=== PATIENT | female | born 1965 | race African-American/Black ===

== ENCOUNTER 2016-03-21 10:59 | Emergency (ER) | payer OTHER ==
[~2016-03-21] VITALS: Ht 152.4 cm; Wt 71.5 kg
[~2016-03-21 10:59] MED LIST: AMLO5TAB22 PO; SPIR50TA21 PO
[2016-03-21 11:01] VITALS: BP 147/88; PULSE 115; RESP 14; TEMP 98.3; O2SAT 98
--- NOTE | 2016-03-21 11:44 | PD ---
HPI Chief Complaint: Cold / Flu Symptoms Time Seen by Provider: 11:25 Travel History International Travel<30 days: No Contact w/Intl Traveler<30days: No Traveled to known affect area: No History of Present Illness HPI Patient is a 50-year-old female with chief been no sore throat. She states she is atraumatic and nasal congestion, sneezing, postnasal drip and sore throat. Heart she swallows. She is able to eat and drink. She denies difficulty breathing, stridor, drooling, cough. She has had some ear pain as well. Mild frontal headache. She denies myalgias. She denies neck pain or stiffness. She denies fevers. She's been around able have had "the flu ". She did not receive influenza vaccine. [facility] Past Medical History Cardiovascular Problems: Yes Diminished Hearing: No Hypertension: Yes : 1 Para: 1 Miscarriage: 0 : 0 Past Surgical History Section: Yes (X1) Social History Alcohol Use: No Tobacco Use: No Substance Use: No Allergies-Medications (Allergen,Severity, Reaction): Coded Allergies: No Known Allergies (Verified , 03/21/16) Reported Meds & Prescriptions Reported Meds & Active Scripts Active Magic Mouthwash Pediatric/Adult Liq (Lidocaine/Diphenhydr/Alum/Mg/Simeth) 60 Ml Susp 5-10 Ml SWISH-SPIT ACHS PRN Please makes 40 mL each: 2% viscous lidocaine, liquid diphenhydramine and Maalox liquid Reported Spironolactone 50 Mg Tab 50 Mg PO DAILY Amlodipine5 5 Mg Tab 1 Tab PO DAILY Review of Systems Except as stated in HPI: all other systems reviewed are Neg Physical Exam Narrative GENERAL: Well-developed and well-nourished adult female in no acute distress. SKIN: Warm and dry. Good turgor without tenting. HEAD: Normocephalic and atraumatic. EYES: PERRL bilaterally, 5mm. EOMI bilaterally. No injection or icterus present. No proptosis. Lids without edema or erythema. ENT: Bilateral ear canals are non-edematous/non-erythematous without otorrhea. Bilateral TMs have intact landmarks and without distortion, perforation, air- fluid level or erythema. Nasal mucosa erythematous and edematous with scant yellow discharge, septum intact and midline. Buccal mucosa pink and moist. Oropharynx reveals bilateral 2+ tonsillar hypertrophy with erythema and exudate. No masses, edema or asymmetry. Uvula midline and airway patent. No palatal petechiae. NECK: Supple, no meningeal signs. Trachea midline, no JVD. No cervical or facial lymphadenopathy. No masses are indurated palpated. CARDIOVASCULAR: Regular rate and rhythm without murmurs, rubs, clicks or gallops. Radial pulses 2+ bilaterally. RESPIRATORY: Clear to auscultation bilaterally with symmetrical rise and fall, no distress or use of accessory muscles. Speaks in full sentences. No stridor , tripoding or drooling. GASTROINTESTINAL: Non-tender, non-distended. Normal bowel sounds all 4 quadrants. No masses or organomegaly present. MUSCULOSKELETAL: No gait disturbances. Patient freely moving all four extremities spontaneously. Extremities without clubbing, cyanosis, or edema. No obvious deformities. NEUROLOGIC: CN II-XII grossly intact. Awake and alert. Motor grossly within normal limits. Normal speech. PSYCHIATRIC: Appropriate mood and affect; insight and judgment normal. Data Data Last Documented VS Vital Signs Date Time Temp Pulse Resp B/P Pulse Ox O2 Delivery O2 Flow Rate FiO2 03/21/16 11:01 98.3 115 14 147/88 98 Room Air Orders Group A Rapid Strep Screen (03/21/16 11:19) Influenzae A/B Antigen (03/21/16 11:19) Strep Culture (Group A) (03/21/16 12:10) MDM Medical Decision Making Medical Screen Exam Complete: Yes Emergency Medical Condition: Yes Interpretation(s) Date/Time Procedure Status Source Growth 03/21/16 12:10 Group A Streptococcus Screen ([facility]ERRI) - Final Complete Throat 03/21/16 12:10 Influenza Types A,B Antigen ([facility]ERRI) - Final Complete Nasal Washing NEGATIVE FOR FLU A AND B ANTIGEN.... 03/21/16 12:10 Group A Streptococcus Screen Received Throat Pending Differential Diagnosis Pharyngitis versus strep pharyngitis versus viral pharyngitis versus viral syndrome versus inflamed Narrative Course Patient is a 50-year-old female who is afebrile and nontoxic-appearing with ENT symptoms for 2 days. She has an exudative pharyngitis. No meningeal signs or cervical lymphadenopathy. No signs of peritonsillar abscess. Lungs clear to auscultation and or respiratory complaints. Sent rapid flu and strep testing which were negative. Patient is a viral pharyngitis. Counseled her on rest and avoiding overexertion and not doing anything that would cause trauma to the chest or abdominal wall. She was given Magic mouthwash. Of note her heart rate was slightly elevated in triage showed her on my exam it is 92 and regular. She does not have evidence of sepsis or dehydration on exam. No further workup is indicated at this time emergently.See discharge paperwork for further instructions. The plan was discussed with the patient who acknowledged their understanding and agreement. Reinforced the follow-up with primary care is critically important. Patient instructed on emergent conditions that should prompt return to ED. Diagnosis Primary Impression: Viral pharyngitis Patient Instructions: General Instructions, Pharyngitis (ED), Viral Syndrome ( ED) Departure Forms: Tests/Procedures, Work Release Enter return to work date: Mar 25, 2016 Additional Instructions: Take medication as prescribed OTC Tylenol or Ibuprofen for fever and discomfort Drink lots of fluid to help clear mucous/drainage and stay hydrated Follow up with PCP in 2 days Return to the ED for any acute worsening of symptoms Med/Other Pt SpecificInfo: Prescription(s) given Scripts Rnbjdgoznttaiis-Eukkrbsku-Peh-Alum-Simeth Liq (Magic Mouthwash Pediatric/Adult Liq)60 Ml Susp5-10 Ml SWISH-SPIT ACHS PRN (SORE THROAT) #120 ML Please makes 40 mL each: 2% viscous lidocaine, liquid diphenhydramine and Maalox liquid Prov:Sana Lee MD 03/21/16 Disposition: 01 DISCHARGE HOME Condition: Stable Lauri Dean III Mar 21, 2016 11:44
[2016-03-21] MEDS ORDERED: MAGICPED SWISH-SPIT (13:09)
== END 2016-03-21 14:15 | disposition home or self-care (01) ==
LOC: NEPB 10:59
DX: J02.9 Acute pharyngitis, unspecified (principal)
CPT/HCPCS: 87081; 87804; 87880; 99283

== ENCOUNTER 2016-03-23 14:27 | Emergency (ER) | payer OTHER ==
[~2016-03-23] VITALS: Ht 162.6 cm; Wt 68.0 kg
[~2016-03-23 14:27] MED LIST changes: +MAGICPED SWISH-SPIT
[2016-03-23 14:29] VITALS: BP 134/76; PULSE 106; RESP 18; TEMP 98.6; O2SAT 100
[2016-03-23] MEDS ORDERED: AMOX500C PO (14:58)
--- NOTE | 2016-03-23 14:58 | PD ---
HPI Chief Complaint: ENT Complaint Time Seen by Provider: 14:56 Travel History International Travel<30 days: No Contact w/Intl Traveler<30days: No Traveled to known affect area: No History of Present Illness HPI 50-year-old female presents to the emergency Department with complaint of continued sore throat. She states that she was seen here on Friday for the same complaint and was given a mouthwash that is not working. Her throat pain has worsened. She reports painful swallowing /. Reports gagging with swallowing secondary to the pain. Reports vomiting after eating soup last night , secondary to the pain. Denies lump in throat, unusual drooling, difficulty breathing, stridor, wheezing. Reports voice is hoarse. Reports feeling feverish but has not taken her temperature and cannot report a MAXIMUM TEMPERATURE. Took Tylenol this morning with some relief of pain. Has not taken any other medications or tried any other treatments to alleviate her symptoms. No known allergies. History of hypertension. No other modifying factors or associated signs and symptoms. PFSH Past Medical History Cardiovascular Problems: Yes Diminished Hearing: No Hypertension: Yes ?: Not : 1 Para: 1 Miscarriage: 0 : 0 Past Surgical History Section: Yes (X1) Social History Alcohol Use: No Tobacco Use: No Substance Use: No Allergies-Medications (Allergen,Severity, Reaction): Coded Allergies: No Known Allergies (Verified , 03/21/16) Reported Meds & Prescriptions Reported Meds & Active Scripts Active Amoxicillin 500 Mg Cap 500 Mg PO BID 10 Days Magic Mouthwash Pediatric/Adult Liq (Lidocaine/Diphenhydr/Alum/Mg/Simeth) 60 Ml Susp 5-10 Ml SWISH-SPIT ACHS PRN Please makes 40 mL each: 2% viscous lidocaine, liquid diphenhydramine and Maalox liquid Reported Spironolactone 50 Mg Tab 50 Mg PO DAILY Amlodipine5 5 Mg Tab 1 Tab PO DAILY Review of Systems Except as stated in HPI: all other systems reviewed are Neg Physical Exam Narrative GENERAL: Well-nourished, well-developed female patient, in no acute distress; afebrile, nontoxic-appearing SKIN: Warm and dry. No rash. HEAD: Atraumatic. Normocephalic. EYES: Pupils equal and round at 3 mm with brisk reaction. No scleral icterus. No injection or drainage. PERRLA. ENT: Mucosa pink and dry. Oropharynx with 2+ tonsils; with erythema, exudate, and edema. No Uvular edema. No uvular, palatal, or tonsillar deviation. Airway patent. Voice is hoarse. EARS: Bilateral pinnae and external canals appear within normal limits. Bilateral tympanic membranes without erythema, dullness or perforation.. NECK: Trachea midline. Anterior cervical lymphadenopathy and tenderness. CARDIOVASCULAR: Regular rate and rhythm. No murmur appreciated. RESPIRATORY: No accessory muscle use. Clear to auscultation. Breath sounds equal bilaterally. GASTROINTESTINAL: Abdomen soft, non-tender, nondistended. Hepatic and splenic margins not palpable. Bowel sounds are active 4 quadrants. MUSCULOSKELETAL: No obvious deformities. No clubbing. No cyanosis. No edema. NEUROLOGICAL: Awake and alert. Oriented 3. No obvious cranial nerve deficits. Motor grossly within normal limits. Normal speech. Moves all extremities. PSYCHIATRIC: Appropriate mood and affect; insight and judgment normal. Data Data Last Documented VS Vital Signs Date Time Temp Pulse Resp B/P Pulse Ox O2 Delivery O2 Flow Rate FiO2 03/23/16 14:29 98.6 106 18 134/76 100 Room Air MDM Medical Decision Making Medical Screen Exam Complete: Yes Emergency Medical Condition: Yes Medical Record Reviewed: Yes Differential Diagnosis Viral pharyngitis, strep pharyngitis, exudative pharyngitis, less likely peritonsillar abscess Narrative Course 50-year-old female physical exam consistent with exudative pharyngitis. She was seen 2 days ago here in the ER and rapid strep and influenza were negative. Oropharynx is erythemic and edematous with some exudate noted on the left tonsil. Patient reports having difficulty swallowing secondary to severe pain. I did a swallow evaluation at the bedside and the did gag after swallowing, but did swallowed without coughing, regurgitation, choking. Afebrile in the ER. Nontoxic-appearing. Reports feeling feverish at home but cannot report a MAXIMUM TEMPERATURE. I spoke with my attending, Dr. Smallwood, and she recommended treating the patient with antibiotics. Amoxicillin prescribed for home. Discussed treatment plan and reasons to return to the emergency department with the patient and she verbalized understanding and agreement with treatment plan. Patient is medically cleared and stable for discharge. Discussed reasons to return to the emergency department. Instructed patient to follow up with primary care provider. Patient agrees with treatment plan. The patients vital signs are stable and the patient is stable for outpatient follow-up and treatment. Patient discharged home, stable and in no acute distress. Diagnosis Primary Impression: Exudative pharyngitis Referrals: Primary Care Physician Patient Instructions: General Instructions, Pharyngitis (ED) Departure Forms: Tests/Procedures, Work Release Enter return to work date: Mar 25, 2016 Additional Instructions: Take Antibiotics as prescribed and complete full course of antibiotics Get plenty of sleep/rest Rest your voice Drink plenty of fluids to prevent dehydration Use warm saltwater gargles to soothe throat pain Use an air humidifier/turn off ceiling fans Use throat lozenges as needed for sore throat Use ibuprofen or acetaminophen as needed to relieve pain and fever Follow-up with your primary care provider Return immediately to the emergency department Med/Other Pt SpecificInfo: Prescription(s) given Scripts Amoxicillin 500 Mg Osw276 Mg PO BID 10 Days Ref 0 Prov:Joanna Clemente 03/23/16 Disposition: 01 DISCHARGE HOME Condition: Stable Joanna Clemente Mar 23, 2016 14:58
[2016-03-23] MEDS ORDERED: SPIR50TA PO (15:04)
[2016-03-23] MEDS ORDERED: AMLO5TAB2 PO (15:04)
== END 2016-03-23 15:13 | disposition home or self-care (01) ==
LOC: NEPB 14:27
DX: J02.9 Acute pharyngitis, unspecified (principal)
CPT/HCPCS: 99283